=== PATIENT | female | born 1985 ===

== ENCOUNTER 2017-04-30 20:11 | Emergency (ER) | payer SELFPAY ==
[2017-04-30 20:29] VITALS: RESP 18
--- NOTE | 2017-04-30 21:18 | C.PDOC ---
History Of Present Illness 31 year old female who presents to the ER for a complaint of a non-healing abdominoplasty scar after having a procedure done in the [place] 6 weeks ago. Patient states she wound dehisced 2 weeks ago and did not seek treatment at the time. Denies fever, chills, or discharge from the wound. Time Seen by Provider: 04/30/17 21:09 Chief Complaint (Nursing): Abnormal Skin Integrity History Per: Patient History/Exam Limitations: no limitations Onset/Duration Of Symptoms: Days Current Symptoms Are (Timing): Still Present Location Of Injury: Anterior: Abdomen Quality Of Symptoms: denies: Draining Severity: None Recent travel outside of the [place]: No Past Medical History Reviewed: Historical Data, Nursing Documentation, Vital Signs Vital Signs: Last Vital Signs Temp 98.1 F 04/30/17 21:44 Pulse 98 H 04/30/17 21:44 Resp 18 04/30/17 21:44 BP 118/81 04/30/17 21:44 Pulse Ox 97 04/30/17 21:44 - Medical History PMH: No Chronic Diseases Surgical History: No Surg Hx Family History: States: Unknown Family Hx - Social History Hx Alcohol Use: No Hx Substance Use: No - Immunization History Hx Tetanus Toxoid Vaccination: No Hx Influenza Vaccination: No Hx Pneumococcal Vaccination: No Review Of Systems Constitutional: Negative for: Fever, Chills Gastrointestinal: Negative for: Abdominal Pain Skin: Positive for: Other (Wound) Physical Exam - Physical Exam Appears: Non-toxic, Other (Young black female) Skin: Normal Color, Warm, Dry Head: Atraumatic, Normacephalic Oral Mucosa: Moist Chest: Symmetrical, No Tenderness Cardiovascular: Rhythm Regular, No Murmur Respiratory: Normal Breath Sounds, No Rales, No Rhonchi, No Wheezing Gastrointestinal/Abdominal: Soft, No Tenderness, Other (Dehisence at pfannenstiel, approximately 8cm right of center with granulation tissue. No pus , surrounding erythema, or fluctuance.) ED Course And Treatment O2 Sat by Pulse Oximetry: 96 (Room air) Pulse Ox Interpretation: Normal Medical Decision Making Medical Decision Making: abdominoplasty done 03/10/17 in with dehisence approx 2 weeks ago but pt did not seek medical attention until now. Wound clean and healing by secondary intention Bacitracin ointment and f/u with Dr. Meyers for opt eval. Disposition Doctor Will See Patient In The: Office Counseled Patient/Family Regarding: Studies Performed, Diagnosis - Disposition Referrals: [facility] [Outside] [facility] [employer] [Outside] Eric Vences MD [Staff Provider] - Disposition: HOME/ ROUTINE Disposition Time: 21:18 Condition: GOOD Additional Instructions: Llava con jabon y agua diario Applica Bacitracin ointment 2 ve[address]igue con [address] Meyers (Gynocologo) para seguir myles evaluation Dalila @ bedside [facility] Instructions: Wound Dehiscence (ED) Forms: [employer] (Paraguayan) Print Language: URDU - Clinical Impression Clinical Impression: Wound dehiscence - Scribe Statement The provider has reviewed the documentation as recorded by the Scribe Maximus Briceño All medical record entries made by the Scribe were at my direction and personally dictated by me. I have reviewed the chart and agree that the record accurately reflects my personal performance of the history, physical exam, medical decision making, and the department course for this patient. I have also personally directed, reviewed, and agree with the discharge instructions and disposition.
[2017-04-30 21:45] VITALS: BP 118/81; PULSE 98; TEMP 98.1
[2017-05-01 00:03] VITALS: O2SAT 96
== END 2017-04-30 21:40 | disposition home or self-care (01) ==
LOC: C.ER 20:11
DX: T81.31XA Disruption of external operation (surgical) wound, not elsewhere classified, initial encounter (principal)